=== PATIENT | male | born 1950 | race Caucasian/White ===

== ENCOUNTER 2018-08-13 08:31 | Inpatient (IN) | payer MEDICARE, OTHER ==
[2018-08-13] MEDS: SODIUM CHLORIDE 0.9% 1L BAG IV* (08:47)
[2018-08-13] MEDS: CLINDAMYCIN 900 MG/D5W (PMX) 50 ML IVPB (09:03)
[2018-08-13 09:08] LABS: ADD MAN DIFF? NO
[2018-08-13] MEDS: ACETAMINOPHEN 325 MG TAB PO (09:11)
[2018-08-13 09:12] LABS: ABNORMAL IP MESSAGE 1; BASOPHILS % 0.1 % (0.0-2.0); HEMATOCRIT 41.8 % (42.0-52.0); HEMOGLOBIN 13.4 g/dl (14.0-18.0); LYMPHOCYTES # 1.7 10^3/ul (0.8-2.9); LYMPHOCYTES % 9.7 % (15.0-51.0); MEAN CORPUSCULAR HEMOGLOBIN 28.5 pg (29.0-33.0); MEAN CORPUSCULAR HGB CONC 32.1 g/dl (32.0-37.0); MEAN CORPUSCULAR VOLUME 88.9 fl (82.0-101.0); MEAN PLATELET VOLUME 11.5 fl (7.4-10.4); MONOCYTE # 3.8 10^3/ul (0.3-0.9); MONOCYTES % 22.6 % (0.0-11.0); NEUTROPHIL # 11.4 10^3/ul (1.6-7.5); NEUTROPHILS % 67.2 % (39.0-77.0); PLATELET COUNT 107 10^3/UL (140-415); POSITIVE DIFF @See below; RED CELL DISTRIBUTION WIDTH 19.7 % (11.5-14.5)
[2018-08-13] MEDS: ACETAMINOPHEN 650MG/20.3ML CUP GTB (09:19)
[2018-08-13] MEDS: AZTREONAM 1 GM/NS (PMX) 50 ML IVPB (09:25)
[2018-08-13 09:34] LABS: ANION GAP 9 (8-16); BLOOD UREA NITROGEN 18 mg/dl (7-20); CARBON DIOXIDE 16 mmol/L (21-31); CHLORIDE 118 mmol/L (97-110); CREATININE 0.76 mg/dl (0.61-1.24); GLUCOSE 115 mg/dl (70-220); SODIUM 140 mmol/L (135-144)
[2018-08-13 09:41] LABS: LACTIC ACID 3.3 mmol/L (0.5-2.0)
[2018-08-13 09:45] LABS: CALCIUM 5.5 mg/dl (8.4-10.2); INR 0.93; POTASSIUM 2.9 mmol/L (3.5-5.1); PROTIME 12.5 Sec (11.9-14.9); TROPONIN-I < 0.012 ng/ml (0.000-0.120)
[2018-08-13] MEDS ORDERED: ONDANSETRON 4 MG INJ IV (10:00)
[2018-08-13] MEDS ORDERED: MAGNESIUM HYDROXIDE 30ML CUP GTB (10:00)
[2018-08-13] MEDS ORDERED: SENNA TAB GTB (10:00)
[2018-08-13] MEDS ORDERED: ACETAMINOPHEN 325 MG TAB PO (10:00)
[2018-08-13] MEDS ORDERED: ACETAMINOPHEN 650MG/20.3ML CUP GTB (10:00)
[2018-08-13 10:06] LABS: VALPROATE 51 ug/ml (50-100)
[2018-08-13] MEDS: VANCOMYCIN 1 GM (PMX) 250 ML IVPB (10:17)
[2018-08-13] MEDS: SOD CHLORIDE 0.9% 500 ML IV (10:17)
[2018-08-13 11:01] LABS: AADO2 Arterial 441.7 mmHg (7.0-24.0); Allen Test ACCEPTAB; Arterial Base Excess -4.1 mmol/L (-3.0-3); Arterial Blood Gas Oxygen Sat 99.3 mmHG (95.0-98.0); Arterial COHb 0.3 % (0.0-3.0); Arterial Fraction of Oxyhgb 98.7 % (93.0-99.0); Arterial HCO3 19.8 mmol/L (22.0-26.0); Arterial MetHb 0.3 % (0.0-1.5); Arterial Total Hemglobin 13.7 g/dl (12.0-18.0); Arterial pCO2 32.9 mmhg (35-45); Blood Gas IEPAP 15/5; Blood Gas PS 10; MODE MASK - BIPAP; Site Right Radial
[2018-08-13 11:04] LABS: ALANINE AMINOTRANSFERASE 27 IU/L (13-69); ALBUMIN 2.9 g/dl (3.3-4.9); ALKALINE PHOSPHATASE 44 IU/L (42-121); ASPARTATE AMINO TRANSFERASE 30 IU/L (15-46); BILIRUBIN,INDIRECT 0.5 mg/dl (0-1.1); BILIRUBIN,TOTAL 0.5 mg/dl (0.2-1.3)
[2018-08-13] MEDS: POTASSIUM CHLORIDE 100 ML IVPB ×4 (11:06→15:45)
[2018-08-13 11:34] LABS: LACTIC ACID 2.4 mmol/L (0.5-2.0)
[2018-08-13] MEDS: MAGNESIUM SULFATE 2 GM/50 ML 50 ML IVPB (12:05)
[2018-08-13] MEDS: SOD CHLORIDE 0.9% 1,000 ML IV (14:29)
[2018-08-13] MEDS: CALCIUM GLUCONATE 10% 1 GM in DEXTROSE 5% 100 ML IVPB (14:29)
[2018-08-13] MEDS: DIVALPROEX SPRINKLE 125 MG CAP GTB ×2 (14:47→21:46)
[2018-08-13 15:10] LABS: LACTIC ACID 2.5 mmol/L (0.5-2.0)
[2018-08-13] MEDS ORDERED: NON-FORMULARY/PATIENT OWN MED (Amino Acids/Protein Hydrolys (Pro-Stat Awc Liquid) 30 ML) XX (21:00)
[2018-08-13] MEDS: LEVETIRACETAM (100 MG/ML) 5ML CUP GTB (21:29)
[2018-08-13] MEDS ORDERED: VANCOMYCIN IV PER PHARMACY XX (23:00)
[2018-08-14] MEDS: VANCOMYCIN 1.25 GM in SOD CHLORIDE 0.9% 250 ML IVPB ×2 (00:35→13:08)
[2018-08-14 06:07] LABS: WHITE BLOOD COUNT 12.1 10^3/ul (4.8-10.8)
[2018-08-14 06:07] LABS: ABNORMAL IP MESSAGE 1; HEMATOCRIT 37.7 % (42.0-52.0); MEAN CORPUSCULAR HEMOGLOBIN 28.3 pg (29.0-33.0); MEAN CORPUSCULAR HGB CONC 31.8 g/dl (32.0-37.0); MEAN CORPUSCULAR VOLUME 88.9 fl (82.0-101.0); MEAN PLATELET VOLUME 11.2 fl (7.4-10.4); PLATELET COUNT 113 10^3/UL (140-415); POSITIVE DIFF @See below; RED BLOOD COUNT 4.24 10^6/ul (4.70-6.10); RED CELL DISTRIBUTION WIDTH 19.6 % (11.5-14.5)
[2018-08-14 06:18] LABS: ADD MAN DIFF? YES
[2018-08-14 06:35] LABS: CREATINE KINASE 147 IU/L (23-200)
[2018-08-14 06:40] LABS: ALANINE AMINOTRANSFERASE 32 IU/L (13-69); ALBUMIN 2.7 g/dl (3.3-4.9); ALBUMIN/GLOBULIN RATIO 0.79; ALKALINE PHOSPHATASE 38 IU/L (42-121); ANION GAP 12 (8-16); ASPARTATE AMINO TRANSFERASE 27 IU/L (15-46); BILIRUBIN,INDIRECT 0.7 mg/dl (0-1.1); BILIRUBIN,TOTAL 0.7 mg/dl (0.2-1.3); BLOOD UREA NITROGEN 18 mg/dl (7-20); CALCIUM 8.1 mg/dl (8.4-10.2); CARBON DIOXIDE 22 mmol/L (21-31); CHLORIDE 108 mmol/L (97-110); CHOL/HDL RATIO 4.2 RATIO; CHOLESTEROL 110 mg/dl (100-200); GLUCOSE 121 mg/dl (70-220); HDL CHOLESTEROL 26 mg/dl (30-78); LDL CHOLESTEROL,CALCULATED 63 mg/dl; POTASSIUM 4.9 mmol/L (3.5-5.1); SODIUM 137 mmol/L (135-144); TOTAL PROTEIN 6.1 g/dl (6.1-8.1); TRIGLYCERIDES 106 mg/dl (0-149)
[2018-08-14 06:41] LABS: ANION GAP 12 (8-16); BLOOD UREA NITROGEN 19 mg/dl (7-20); CALCIUM 8.1 mg/dl (8.4-10.2); CARBON DIOXIDE 22 mmol/L (21-31); CHLORIDE 108 mmol/L (97-110); CREATININE 0.81 mg/dl (0.61-1.24); GLUCOSE 120 mg/dl (70-220); PHOSPHORUS 2.8 mg/dl (2.5-4.9); POTASSIUM 5.2 mmol/L (3.5-5.1); SODIUM 137 mmol/L (135-144)
[2018-08-14 06:45] LABS: B-TYPE NATRIURETIC PEPTIDE 2800 PG/ML (0-125)
[2018-08-14 06:47] LABS: CK INDEX 1.6; CK-MB 2.36 ng/ml (0.0-2.4); TROPONIN-I 0.019 ng/ml (0.000-0.120)
[2018-08-14 06:53] LABS: FREE T4 (FREE THYROXINE) 1.36 ng/dl (0.78-2.44)
[2018-08-14 07:07] LABS: ANISOCYTOSIS 1+ (0-0); BAND NEUTROPHILS #M 7.9 10^3/ul (0.0-0.6); BAND NEUTROPHILS % (M) 66 % (0-4); LYMPHOCYTES #M 0.8 10^3/ul (0.8-2.9); LYMPHOCYTES % (M) 7 % (15-51); MICROCYTOSIS 1+ (0-0); MONOCYTE #M 2.6 10^3/ul (0.3-0.9); MONOCYTES % (M) 22 % (0-11); PLATELET ESTIMATE SIG DECREASED; POLYCHROMASIA 2+ (0-0); REACTIVE LYMPHOCYTES #M 0.1 10^3/ul (0.0-0.0); REACTIVE LYMPHOCYTES% (M) 1 % (0-0); SEG NEUT #M 1.4 10^3/ul (1.6-7.5); SEGMENTED NEUTROPHILS (M) % 4 % (39-77); SMUDGE%M 19 % (0-0); SPHEROCYTES 1+ (0-0)
[2018-08-14] MEDS: MULTIVITAMINS THERAPEUTIC TAB GTB (08:38)
[2018-08-14] MEDS: DIVALPROEX SPRINKLE 125 MG CAP GTB ×3 (08:38→21:09)
[2018-08-14] MEDS: LEVETIRACETAM (100 MG/ML) 5ML CUP GTB ×2 (08:38→21:10)
[2018-08-14] MEDS: POLYETHYLENE GLYCOL 17 GM PACKET GTB (08:40)
[2018-08-14] MEDS: SOD CHLORIDE 0.9% 1,000 ML IV (09:30)
[2018-08-14] MEDS: AZTREONAM 1 GM/NS (PMX) 50 ML IVPB ×2 (09:40→21:10)
[2018-08-15] MEDS: VANCOMYCIN 1.25 GM in SOD CHLORIDE 0.9% 250 ML IVPB ×2 (00:37→12:25)
[2018-08-15] MEDS: SOD CHLORIDE 0.9% 1,000 ML IV (05:30)
[2018-08-15 06:11] LABS: ADD MAN DIFF? NO
[2018-08-15 06:24] LABS: WHITE BLOOD COUNT 7.5 10^3/ul (4.8-10.8)
[2018-08-15 06:24] LABS: ABNORMAL IP MESSAGE 1; BASOPHILS % 0.1 % (0.0-2.0); EOSINOPHILS % 0.4 % (0.0-7.0); HEMATOCRIT 39.4 % (42.0-52.0); HEMOGLOBIN 12.2 g/dl (14.0-18.0); LYMPHOCYTES # 1.3 10^3/ul (0.8-2.9); MEAN CORPUSCULAR HEMOGLOBIN 28.2 pg (29.0-33.0); MEAN PLATELET VOLUME 11.1 fl (7.4-10.4); MONOCYTE # 1.2 10^3/ul (0.3-0.9); MONOCYTES % 15.9 % (0.0-11.0); NEUTROPHILS % 66.3 % (39.0-77.0); PLATELET COUNT 99 10^3/UL (140-415); POSITIVE DIFF @See below; RED BLOOD COUNT 4.33 10^6/ul (4.70-6.10); RED CELL DISTRIBUTION WIDTH 19.6 % (11.5-14.5)
[2018-08-15 06:45] LABS: ANION GAP 10 (8-16); BLOOD UREA NITROGEN 24 mg/dl (7-20); CALCIUM 8.3 mg/dl (8.4-10.2); CARBON DIOXIDE 25 mmol/L (21-31); CHLORIDE 110 mmol/L (97-110); CREATININE 0.96 mg/dl (0.61-1.24); GLUCOSE 94 mg/dl (70-220); PHOSPHORUS 4.1 mg/dl (2.5-4.9); POTASSIUM 4.4 mmol/L (3.5-5.1); SODIUM 141 mmol/L (135-144)
[2018-08-15] MEDS: DIVALPROEX SPRINKLE 125 MG CAP GTB ×3 (08:32→20:33)
[2018-08-15] MEDS: AZTREONAM 1 GM/NS (PMX) 50 ML IVPB ×2 (08:32→20:35)
[2018-08-15] MEDS: LEVETIRACETAM (100 MG/ML) 5ML CUP GTB ×2 (08:32→20:32)
[2018-08-15] MEDS: POLYETHYLENE GLYCOL 17 GM PACKET GTB (08:32)
[2018-08-15] MEDS: MULTIVITAMINS THERAPEUTIC TAB GTB (08:32)
[2018-08-15 12:12] LABS: VANCOMYCIN,TROUGH 16.8 ug/ml (10.0-20.0)
[2018-08-15] MEDS: ASPIRIN 300 MG SUPP PR (15:22)
[2018-08-16] MEDS: VANCOMYCIN 1.25 GM in SOD CHLORIDE 0.9% 250 ML IVPB ×2 (00:15→11:36)
[2018-08-16 06:03] LABS: ADD MAN DIFF? NO
[2018-08-16 06:13] LABS: BASOPHILS % 0.3 % (0.0-2.0); EOSINOPHILS # 0.1 10^3/ul (0.0-0.5); EOSINOPHILS % 1.5 % (0.0-7.0); HEMATOCRIT 36.2 % (42.0-52.0); HEMOGLOBIN 11.4 g/dl (14.0-18.0); LYMPHOCYTES # 1.5 10^3/ul (0.8-2.9); LYMPHOCYTES % 23.4 % (15.0-51.0); MEAN CORPUSCULAR HEMOGLOBIN 28.8 pg (29.0-33.0); MEAN CORPUSCULAR HGB CONC 31.5 g/dl (32.0-37.0); MEAN CORPUSCULAR VOLUME 91.4 fl (82.0-101.0); MEAN PLATELET VOLUME 10.5 fl (7.4-10.4); MONOCYTE # 0.9 10^3/ul (0.3-0.9); MONOCYTES % 13.1 % (0.0-11.0); NEUTROPHILS % 60.9 % (39.0-77.0); PLATELET COUNT 104 10^3/UL (140-415); RED BLOOD COUNT 3.96 10^6/ul (4.70-6.10); RED CELL DISTRIBUTION WIDTH 19.2 % (11.5-14.5)
[2018-08-16 06:13] LABS: WHITE BLOOD COUNT 6.5 10^3/ul (4.8-10.8)
[2018-08-16 07:09] LABS: ANION GAP 12 (8-16); BLOOD UREA NITROGEN 23 mg/dl (7-20); CALCIUM 8.5 mg/dl (8.4-10.2); CARBON DIOXIDE 25 mmol/L (21-31); CHLORIDE 110 mmol/L (97-110); GLUCOSE 123 mg/dl (70-220); PHOSPHORUS 4.2 mg/dl (2.5-4.9); POTASSIUM 3.8 mmol/L (3.5-5.1); SODIUM 143 mmol/L (135-144)
[2018-08-16] MEDS: MULTIVITAMINS THERAPEUTIC TAB GTB (09:18)
[2018-08-16] MEDS: LEVETIRACETAM (100 MG/ML) 5ML CUP GTB ×2 (09:18→21:16)
[2018-08-16] MEDS: ASPIRIN 300 MG SUPP PR (09:19)
[2018-08-16] MEDS: POLYETHYLENE GLYCOL 17 GM PACKET GTB (09:20)
[2018-08-16] MEDS: DIVALPROEX SPRINKLE 125 MG CAP GTB ×3 (09:25→21:16)
[2018-08-16] MEDS: AZTREONAM 1 GM/NS (PMX) 50 ML IVPB ×2 (09:26→21:16)
[2018-08-16] MEDS: FUROSEMIDE 20 MG INJ IV (11:35)
[2018-08-16] MEDS: POTASSIUM CHLORIDE 100 ML IVPB (15:27)
[2018-08-17] MEDS: VANCOMYCIN 1.25 GM in SOD CHLORIDE 0.9% 250 ML IVPB ×2 (00:49→13:56)
[2018-08-17 06:08] LABS: ADD MAN DIFF? NO
[2018-08-17 06:13] LABS: BASOPHILS % 0.4 % (0.0-2.0); EOSINOPHILS # 0.2 10^3/ul (0.0-0.5); EOSINOPHILS % 2.4 % (0.0-7.0); HEMATOCRIT 34.5 % (42.0-52.0); HEMOGLOBIN 10.8 g/dl (14.0-18.0); LYMPHOCYTES # 2.1 10^3/ul (0.8-2.9); LYMPHOCYTES % 30.1 % (15.0-51.0); MEAN CORPUSCULAR HEMOGLOBIN 28.3 pg (29.0-33.0); MEAN CORPUSCULAR HGB CONC 31.3 g/dl (32.0-37.0); MEAN CORPUSCULAR VOLUME 90.6 fl (82.0-101.0); MEAN PLATELET VOLUME 10.6 fl (7.4-10.4); MONOCYTE # 0.7 10^3/ul (0.3-0.9); MONOCYTES % 10.4 % (0.0-11.0); NEUTROPHIL # 3.9 10^3/ul (1.6-7.5); PLATELET COUNT 126 10^3/UL (140-415); RED BLOOD COUNT 3.81 10^6/ul (4.70-6.10); RED CELL DISTRIBUTION WIDTH 19.2 % (11.5-14.5)
[2018-08-17 06:41] LABS: B-TYPE NATRIURETIC PEPTIDE 2040 PG/ML (0-125)
[2018-08-17 06:59] LABS: ANION GAP 8 (8-16); BLOOD UREA NITROGEN 20 mg/dl (7-20); CALCIUM 8.5 mg/dl (8.4-10.2); CARBON DIOXIDE 30 mmol/L (21-31); CHLORIDE 107 mmol/L (97-110); CREATININE 0.74 mg/dl (0.61-1.24); GLUCOSE 117 mg/dl (70-220); MAGNESIUM 1.9 mg/dl (1.7-2.5); PHOSPHORUS 3.9 mg/dl (2.5-4.9); POTASSIUM 3.8 mmol/L (3.5-5.1); SODIUM 141 mmol/L (135-144)
[2018-08-17] MEDS: POLYETHYLENE GLYCOL 17 GM PACKET GTB (08:30)
[2018-08-17] MEDS: LEVETIRACETAM (100 MG/ML) 5ML CUP GTB (08:30)
[2018-08-17] MEDS: MULTIVITAMINS THERAPEUTIC TAB GTB (08:31)
[2018-08-17] MEDS: DIVALPROEX SPRINKLE 125 MG CAP GTB ×2 (08:31→13:57)
[2018-08-17] MEDS: FUROSEMIDE 20 MG INJ IV (08:32)
[2018-08-17] MEDS: AZTREONAM 1 GM/NS (PMX) 50 ML IVPB (09:04)
[2018-08-17] MEDS: ASPIRIN 300 MG SUPP PR (09:40)
== END 2018-08-17 17:57 | DRG 871 ==
LOC: E/R 08:31 → 6WM 10:00
PROC: 5A09557 Assistance with Respiratory Ventilation, Greater than 96 Consecutive Hours, Continuous Positive Airway Pressure (ICD-10-PCS; principal; 2018-08-13)
DX: A41.9 Sepsis, unspecified organism (principal); J69.0 Pneumonitis due to inhalation of food and vomit; I50.23 Acute on chronic systolic (congestive) heart failure; J96.01 Acute respiratory failure with hypoxia; G92 Toxic encephalopathy; I42.9 Cardiomyopathy, unspecified; E87.2 Acidosis; D69.6 Thrombocytopenia, unspecified; Z93.1 Gastrostomy status; R13.10 Dysphagia, unspecified; F03.90 Unspecified dementia, unspecified severity, without behavioral disturbance, psychotic disturbance, mood disturbance, and anxiety; R65.20 Severe sepsis without septic shock; E87.6 Hypokalemia; G40.909 Epilepsy, unspecified, not intractable, without status epilepticus; Z66 Do not resuscitate; Z86.73 Personal history of transient ischemic attack (TIA), and cerebral infarction without residual deficits
CPT/HCPCS: 36415; 36600; 70450; 71045; 80048; 80053; 80061; 80076; 80164; 80202; 82330; 82550; 82553; 82803; 82962; 83605; 83735; 83880; 84100; 84439; 84443; 84484; 85025; 85610; 85730; 87040; 87081; 93005; 93306; 94660; 96365; 96375; 99291-25